=== PATIENT | female | born 1995 | race African-American/Black ===

== ENCOUNTER 2017-04-25 09:59 | Emergency (ER) | payer OTHER ==
[~2017-04-25] VITALS: Ht 170.2 cm; Wt 127.0 kg
[~2017-04-25 09:59] MED LIST: AZITHROMYCIN 2250 MG PO; NORVASC10 MG PO; ZOFRAN ODT4 MG PO
[2017-04-25 10:30] LABS: URINE BILIRUBIN NEGATIVE (Negative); URINE BLOOD NEGATIVE (Negative); URINE COLOR YELLOW; URINE GLUCOSE-RANDOM* NEGATIVE (Negative); URINE KETONES NEGATIVE (Negative); URINE LEUKOCYTES-REFLEX 1+ (Negative); URINE PROTEIN (DIPSTICK) NEGATIVE (Negative)
[2017-04-25 10:42] LABS: CASTS None Seen /LPF (None Seen); CRYSTALS None Seen /LPF (None Seen); SQUAMOUS 4-10 Moderate /LPF (0-3)
[2017-04-25 10:43] LABS: URINE RBC 0-2 Rare /HPF (0-2); URINE WBC-REFLEX 6-15 Few /HPF (0-5)
[2017-04-25 10:51] LABS: ABSOLUTE NEUTROPHILS 8.1 thou/uL (1.4-8.2); BASOPHILS 0.3 % (0.0-2.0); EOSINOPHILS 0.5 % (0.0-3.0); HEMATOCRIT 41.8 % (37.0-47.0); HEMOGLOBIN 13.9 gm/dL (12.0-15.0); LYMPHOCYTES 15.1 % (24.0-44.0); MCH 27.3 pg (26.0-34.0); MCHC 33.3 g/dL (28.0-37.0); MONOCYTES 5.8 % (1.0-8.0); PLATELET COUNT 296 thou/uL (150-400); POLYS 78.3 % (36.0-66.0); RBC 5.09 mil/uL (4.20-5.00); RDW 13.7 % (10.5-14.5); WBC 10.3 thou/uL (4.0-11.0)
[2017-04-25 10:52] LABS: MANUAL DIFF NO
[2017-04-25 11:04] LABS: CALCIUM 9.2 mg/dL (8.5-10.1); POTASSIUM 3.3 mmol/L (3.5-5.1)
[2017-04-25 11:11] LABS: ALBUMIN 3.8 g/dL (3.4-5.0); TOTAL BILIRUBIN 0.5 mg/dL (<0.1-1.0); TOTAL PROTEIN 7.9 g/dL (6.4-8.2)
[2017-04-25] MEDS ORDERED: KEFLEX500 M1 PO (11:37)
[2017-04-25] MEDS ORDERED: ZOFRAN ODT4 M1 PO (11:37)
[2017-04-25 11:52] VITALS: BP 120/67
== END 2017-04-25 11:54 | disposition home or self-care (01) ==
LOC: ER 09:59
PROVIDERS: Physician Assistant
DX: N39.0 Urinary tract infection, site not specified (principal); I10 Essential (primary) hypertension

== ENCOUNTER 2017-04-30 10:12 | Emergency (ER) | payer OTHER ==
[~2017-04-30] VITALS: Ht 170.2 cm; Wt 127.0 kg
--- NOTE | ~2017-04-30 | EKG ---
[address] [address] ELECTROCARDIOGRAM REPORT Name: ELOINA FIGUEROAJOSSELINEBROOKLYN Aguilar Room #: DEP [facility]#: [id number] Admission: 04/30/17 Attend Phys: Discharge: 04/30/17 Date of : [birth year] Report #: [id number] THIS REPORT FOR: //name// 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
[~2017-04-30 10:12] MED LIST changes: +KEFLEX500 M1 PO; +ZOFRAN ODT4 M1 PO
[2017-04-30 11:37] LABS: ABSOLUTE NEUTROPHILS 6.3 thou/uL (1.4-8.2); BASOPHILS 0.5 % (0.0-2.0); EOSINOPHILS 1.1 % (0.0-3.0); HEMATOCRIT 39.8 % (37.0-47.0); HEMOGLOBIN 13.1 gm/dL (12.0-15.0); LYMPHOCYTES 22.8 % (24.0-44.0); MCH 27.3 pg (26.0-34.0); MCHC 33.1 g/dL (28.0-37.0); MCV 82.7 fL (80.0-100.0); MONOCYTES 5.7 % (1.0-8.0); PLATELET COUNT 276 thou/uL (150-400); POLYS 69.9 % (36.0-66.0); RBC 4.81 mil/uL (4.20-5.00); RDW 13.5 % (10.5-14.5)
[2017-04-30 11:38] LABS: MANUAL DIFF NO
[2017-04-30 11:45] LABS: POTASSIUM 3.3 mmol/L (3.5-5.1)
[2017-04-30 12:18] VITALS: BP 129/70
== END 2017-04-30 12:20 | disposition home or self-care (01) ==
LOC: ER 10:12
PROVIDERS: Emergency Medicine
DX: G56.03 Carpal tunnel syndrome, bilateral upper limbs (principal); E87.6 Hypokalemia; I10 Essential (primary) hypertension

== ENCOUNTER 2017-06-26 09:57 | Emergency (ER) | payer OTHER ==
[~2017-06-26] VITALS: Ht 170.2 cm; Wt 117.9 kg
[2017-06-26] MEDS ORDERED: MOBIC7.5 MG PO (10:47)
[2017-06-26] MEDS ORDERED: PREDNISONE 20 M20 MG PO (10:47)
[2017-06-26] MEDS ORDERED: PENICILLIN V P500 MG PO (10:47)
== END 2017-06-26 11:05 | disposition home or self-care (01) ==
LOC: ER 09:57
DX: J02.0 Streptococcal pharyngitis (principal); I10 Essential (primary) hypertension

== ENCOUNTER 2017-07-05 19:11 | Emergency (ER) | payer OTHER ==
[~2017-07-05] VITALS: Ht 170.2 cm; Wt 131.5 kg
[~2017-07-05 19:11] MED LIST changes: +MOBIC7.5 MG PO; +PENICILLIN V P500 MG PO; +PREDNISONE 20 M20 MG PO
[2017-07-05] MEDS ORDERED: NAPROSYN500 MG PO (19:56)
== END 2017-07-05 20:10 | disposition home or self-care (01) ==
LOC: ER 19:11
DX: S20.112A Abrasion of breast, left breast, initial encounter (principal); I10 Essential (primary) hypertension; X58.XXXA Exposure to other specified factors, initial encounter; Y93.89 Activity, other specified; Y92.89 Other specified places as the place of occurrence of the external cause; Y99.8 Other external cause status

== ENCOUNTER 2017-11-29 14:12 | Emergency (ER) | payer OTHER ==
[~2017-11-29] VITALS: Ht 170.2 cm; Wt 90.7 kg
[~2017-11-29 14:12] MED LIST changes: +NAPROSYN500 MG PO
[2017-11-29 14:16] VITALS: BP 167/110
[2017-11-29] MEDS ORDERED: ZYRTEC10 M2 PO (15:15)
[2017-11-29] MEDS ORDERED: HYDROCORTISONE120 M1 TOP (15:15)
== END 2017-11-29 15:10 | disposition home or self-care (01) ==
LOC: ER 14:12
DX: S40.861A Insect bite (nonvenomous) of right upper arm, initial encounter (principal); S30.861A Insect bite (nonvenomous) of abdominal wall, initial encounter; I10 Essential (primary) hypertension; W57.XXXA Bitten or stung by nonvenomous insect and other nonvenomous arthropods, initial encounter; Y93.89 Activity, other specified; Y92.89 Other specified places as the place of occurrence of the external cause; Y99.8 Other external cause status

== ENCOUNTER 2017-12-10 14:00 | Emergency (ER) | payer OTHER ==
[~2017-12-10] VITALS: Ht 170.2 cm; Wt 131.5 kg
[~2017-12-10 14:00] MED LIST changes: +HYDROCORTISONE120 M1 TOP; +ZYRTEC10 M2 PO
[2017-12-10 14:02] VITALS: BP 157/103
[2017-12-10] MEDS ORDERED: NORVASC5 MG PO (14:04)
[2017-12-10] MEDS ORDERED: COZAAR 50 MG TA50 M2 PO (14:05)
[2017-12-10] MEDS ORDERED: PENICILLIN V P500 MG PO (14:22)
== END 2017-12-10 14:29 | disposition home or self-care (01) ==
LOC: ER 14:00
DX: K08.89 Other specified disorders of teeth and supporting structures (principal); I10 Essential (primary) hypertension

== ENCOUNTER 2017-12-13 18:03 | Emergency (ER) | payer OTHER ==
[~2017-12-13] VITALS: Ht 170.2 cm; Wt 131.5 kg
[~2017-12-13 18:03] MED LIST changes: +COZAAR 50 MG TA50 M2 PO; +NORVASC5 MG PO
[2017-12-13 18:12] VITALS: BP 163/117
[2017-12-13] MEDS ORDERED: ULTRAM 50MG TAB50 MG PO (18:34)
[2017-12-13] MEDS ORDERED: NABUMETONE 750750 M1 PO (18:34)
== END 2017-12-13 18:48 | disposition home or self-care (01) ==
LOC: ER 18:03
DX: K01.1 Impacted teeth (principal); K08.89 Other specified disorders of teeth and supporting structures; K13.79 Other lesions of oral mucosa; I10 Essential (primary) hypertension

== ENCOUNTER 2018-07-22 13:56 | Emergency (ER) | payer OTHER ==
[~2018-07-22] VITALS: Ht 170.2 cm; Wt 134.7 kg
[~2018-07-22 13:56] MED LIST changes: +NABUMETONE 750750 M1 PO; -NORVASC5 MG PO; +ULTRAM 50MG TAB50 MG PO
[2018-07-22] MEDS ORDERED: BUTALB-APAP-CA1 EACH PO (14:29)
[2018-07-22 15:40] VITALS: BP 133/84
== END 2018-07-22 15:40 | disposition home or self-care (01) ==
LOC: ER 13:56
DX: R51 Headache (principal); I10 Essential (primary) hypertension

== ENCOUNTER 2018-08-15 05:39 | Emergency (ER) | payer OTHER ==
[~2018-08-15] VITALS: Ht 170.2 cm; Wt 134.7 kg
[~2018-08-15 05:39] MED LIST changes: +BUTALB-APAP-CA1 EACH PO
[2018-08-15 07:20] VITALS: BP 146/72
== END 2018-08-15 07:21 | disposition home or self-care (01) ==
LOC: ER 05:39
PROVIDERS: Emergency Medicine
DX: J02.9 Acute pharyngitis, unspecified (principal); I10 Essential (primary) hypertension

== ENCOUNTER 2018-09-03 14:10 | Emergency (ER) | payer OTHER ==
[~2018-09-03] VITALS: Ht 170.2 cm; Wt 134.7 kg
[2018-09-03 14:30] LABS: URINE BILIRUBIN NEGATIVE (Negative); URINE BLOOD NEGATIVE (Negative); URINE CLARITY CLEAR; URINE COLOR YELLOW; URINE GLUCOSE-RANDOM* NEGATIVE (Negative); URINE KETONES NEGATIVE (Negative); URINE LEUKOCYTES-REFLEX NEGATIVE (Negative); URINE NITRITE-REFLEX NEGATIVE (Negative); URINE PROTEIN (DIPSTICK) NEGATIVE (Negative); URINE UROBILINOGEN 0.2 E.U./dl (0.2-1.0)
[2018-09-03] MEDS ORDERED: FLAGYL500 M1 PO (15:52)
[2018-09-03 15:58] VITALS: BP 150/78
== END 2018-09-03 15:59 | disposition home or self-care (01) ==
LOC: ER 14:10
PROVIDERS: Emergency Medicine
DX: N76.0 Acute vaginitis (principal); B96.89 Other specified bacterial agents as the cause of diseases classified elsewhere; I10 Essential (primary) hypertension

== ENCOUNTER 2018-11-10 09:07 | Emergency (ER) | payer OTHER ==
[~2018-11-10] VITALS: Ht 170.2 cm; Wt 134.7 kg
[2018-11-10 09:07] VITALS: BP 152/91
[~2018-11-10 09:07] MED LIST changes: +FLAGYL500 M1 PO
== END 2018-11-10 09:30 | disposition home or self-care (01) ==
LOC: ER 09:07
DX: M79.645 Pain in left finger(s) (principal); I10 Essential (primary) hypertension

== ENCOUNTER 2019-01-29 14:11 | Emergency (ER) | payer OTHER ==
[~2019-01-29] VITALS: Ht 170.2 cm; Wt 134.7 kg
[2019-01-29] MEDS ORDERED: NEOMYC-POLYM-DEX5 ML OPHTHALMIC (15:37)
[2019-01-29 15:46] VITALS: BP 142/94
== END 2019-01-29 15:46 | disposition home or self-care (01) ==
LOC: ER 14:11
DX: S05.02XA Injury of conjunctiva and corneal abrasion without foreign body, left eye, initial encounter (principal); I10 Essential (primary) hypertension; X58.XXXA Exposure to other specified factors, initial encounter; Y92.89 Other specified places as the place of occurrence of the external cause; Y93.89 Activity, other specified; Y99.8 Other external cause status

== ENCOUNTER 2019-04-02 17:22 | Emergency (ER) | payer OTHER ==
[~2019-04-02] VITALS: Ht 170.2 cm; Wt 134.7 kg
[~2019-04-02 17:22] MED LIST changes: +NEOMYC-POLYM-DEX5 ML OPHTHALMIC
[2019-04-02 17:23] VITALS: BP 141/92
[2019-04-02] MEDS ORDERED: MEDROLDOSEPACK PO (17:49)
[2019-04-02] MEDS ORDERED: PENICILLIN VK500 M1 PO (17:49)
[2019-04-02] MEDS ORDERED: CEPACOL SORE T1 EAC8 PO (17:49)
== END 2019-04-02 18:02 | disposition home or self-care (01) ==
LOC: ER 17:22
DX: J02.0 Streptococcal pharyngitis (principal); H93.8X1 Other specified disorders of right ear; I10 Essential (primary) hypertension

== ENCOUNTER 2019-05-17 23:02 | Emergency (ER) | payer OTHER ==
[~2019-05-17] VITALS: Ht 170.2 cm; Wt 132.9 kg
[~2019-05-17 23:02] MED LIST changes: +CEPACOL SORE T1 EAC8 PO; +MEDROLDOSEPACK PO; +PENICILLIN VK500 M1 PO
[2019-05-18 01:02] LABS: HEMATOCRIT 42.6 % (37.0-47.0); MCH 27.3 pg (26.0-34.0); MCV 82.7 fL (80.0-100.0); PLATELET COUNT 368 thou/uL (150-400); RBC 5.14 mil/uL (4.20-5.00); RDW 13.8 % (10.5-14.5)
[2019-05-18 01:15] LABS: CALCIUM 9.3 mg/dL (8.5-10.1); POTASSIUM 3.5 mmol/L (3.5-5.1)
[2019-05-18 01:22] LABS: ALBUMIN 4.2 g/dL (3.4-5.0); DIRECT BILIRUBIN 0.1 mg/dL (<0.1-0.2); TOTAL BILIRUBIN 0.5 mg/dL (<0.1-1.0); TOTAL PROTEIN 9.2 g/dL (6.4-8.2)
[2019-05-18 01:32] LABS: ABSOLUTE NEUTROPHILS 18.5 thou/uL (1.4-8.2)
[2019-05-18] MEDS ORDERED: BENTYL 20 MG TA20 M1 PO (03:50)
[2019-05-18] MEDS ORDERED: ZOFRAN ODT4 MG PO (03:50)
[2019-05-18 03:57] VITALS: BP 105/51
== END 2019-05-18 03:58 | disposition home or self-care (01) ==
LOC: ER 23:02
PROVIDERS: Emergency Medicine
DX: R10.13 Epigastric pain (principal); R11.2 Nausea with vomiting, unspecified; R19.7 Diarrhea, unspecified; I10 Essential (primary) hypertension

== ENCOUNTER 2019-08-05 18:57 | Emergency (ER) | payer OTHER ==
[~2019-08-05] VITALS: Ht 170.2 cm; Wt 131.5 kg
[~2019-08-05 18:57] MED LIST changes: +BENTYL 20 MG TA20 M1 PO
[2019-08-05] MEDS ORDERED: TAMIFLU75 MG PO (19:56)
[2019-08-05] MEDS ORDERED: PROMETH-CODEIN 65 ML PO (19:56)
[2019-08-05 20:21] VITALS: BP 174/108
== END 2019-08-05 20:22 | disposition home or self-care (01) ==
LOC: ER 18:57
DX: R50.9 Fever, unspecified (principal); R05 Cough; R51 Headache; R42 Dizziness and giddiness; R09.81 Nasal congestion; M79.10 Myalgia, unspecified site; I10 Essential (primary) hypertension; Z79.899 Other long term (current) drug therapy

== ENCOUNTER 2020-02-21 11:02 | Emergency (ER) | payer OTHER ==
[~2020-02-21] VITALS: Ht 170.2 cm; Wt 132.9 kg
[~2020-02-21 11:02] MED LIST changes: +PROMETH-CODEIN 65 ML PO; +TAMIFLU75 MG PO
[2020-02-21 11:06] VITALS: BP 180/101
[2020-02-21] MEDS ORDERED: AMOXICILLIN500 M1 PO (11:30)
[2020-02-21] MEDS ORDERED: IBUPROFEN 600600 M1 PO (11:30)
== END 2020-02-21 11:46 | disposition home or self-care (01) ==
LOC: ER 11:02
DX: J02.9 Acute pharyngitis, unspecified (principal); I10 Essential (primary) hypertension; Z79.899 Other long term (current) drug therapy

== ENCOUNTER 2020-02-24 18:50 | Emergency (ER) | payer OTHER ==
[~2020-02-24] VITALS: Ht 170.2 cm; Wt 133.8 kg
[~2020-02-24 18:50] MED LIST changes: +AMOXICILLIN500 M1 PO; +IBUPROFEN 600600 M1 PO
[2020-02-24 19:52] LABS: ABSOLUTE NEUTROPHILS 6.4 thou/uL (1.4-8.2); BASOPHILS 0.5 % (0.0-2.0); EOSINOPHILS 1.4 % (0.0-3.0); HEMATOCRIT 38.5 % (37.0-47.0); LYMPHOCYTES 23.9 % (24.0-44.0); MCH 28.6 pg (26.0-34.0); MCHC 33.7 g/dL (28.0-37.0); MCV 84.7 fL (80.0-100.0); MONOCYTES 7.2 % (1.0-8.0); PLATELET COUNT 269 thou/uL (150-400); RBC 4.55 mil/uL (4.20-5.00); WBC 9.6 thou/uL (4.0-11.0)
[2020-02-24 19:57] LABS: ANION GAP 8 mmol/L (7-16); BUN 6 mg/dL (7-18); CALCIUM 8.7 mg/dL (8.5-10.1); CHLORIDE 104 mmol/L (98-107); CO2 28 mmol/L (21-32); CREATININE 1.1 mg/dL (0.6-1.0); GLUCOSE 90 mg/dL (74-106); POTASSIUM 3.4 mmol/L (3.5-5.1); SODIUM 140 mmol/L (136-145)
[2020-02-24 20:08] LABS: ALBUMIN 3.9 g/dL (3.4-5.0); SGOT 29 U/L (15-37); SGPT 49 U/L (30-65); TOTAL BILIRUBIN 0.4 mg/dL (0.2-1.0); TROPONIN-I <0.06 ng/mL (<0.06)
[2020-02-24] MEDS ORDERED: MOBIC7.5 MG PO (20:50)
[2020-02-24] MEDS ORDERED: CYCLOBENZAPRINE5 MG PO (21:00)
[2020-02-24 21:20] VITALS: BP 165/94
--- NOTE | 2020-02-25 07:42 | EKG ---
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: : 1995 Requested By: Elyse Sepulveda Order Number: [id number] MD: Brent Christianson Measurements Intervals [place] Rate: 100 P: 0 LA: 136 QRS: 21 QRSD: 74 T: -30 QT: 353 QTc: 456 Interpretive Statements Sinus tachycardia Borderline T abnormalities, diffuse leads Compared to ECG 04/30/2017 10:26:01 No significant change was found Electronically Signed On 02-25-2020 7:42:07 CDT by Brent Christianson [email or web address] <ELECTRONICALLY SIGNED> By: Brent Christinason MD, FACC 02/25/20 0742 1859 58 Brent Christianson MD, [facility] /EPI
== END 2020-02-24 21:20 | disposition home or self-care (01) ==
LOC: ER 18:50
PROVIDERS: Physician Assistant
DX: R07.89 Other chest pain (principal); R51 Headache; I10 Essential (primary) hypertension; Z79.899 Other long term (current) drug therapy

== ENCOUNTER 2020-03-05 14:58 | Emergency (ER) | payer OTHER ==
[~2020-03-05] VITALS: Ht 170.2 cm; Wt 133.8 kg
[~2020-03-05 14:58] MED LIST changes: +CYCLOBENZAPRINE5 MG PO
[2020-03-05 15:29] VITALS: BP 153/119
[2020-03-05] MEDS ORDERED: ITCH RELIEF15 GM TP (16:07)
[2020-03-05] MEDS ORDERED: DIFLUCAN150 MG PO (16:07)
[2020-03-05] MEDS ORDERED: KEFLEX500 M1 PO (16:07)
== END 2020-03-05 18:01 | disposition home or self-care (01) ==
LOC: ER 14:58
DX: B37.2 Candidiasis of skin and nail (principal); I10 Essential (primary) hypertension; Z79.899 Other long term (current) drug therapy

== ENCOUNTER 2020-05-03 12:50 | Emergency (ER) | payer OTHER ==
[~2020-05-03] VITALS: Ht 170.2 cm; Wt 134.7 kg
[~2020-05-03 12:50] MED LIST changes: +DIFLUCAN150 MG PO; +ITCH RELIEF15 GM TP
[2020-05-03] MEDS ORDERED: MOBIC15 MG PO (13:45)
[2020-05-03 13:54] VITALS: BP 155/105
== END 2020-05-03 14:00 | disposition home or self-care (01) ==
LOC: ER 12:50
DX: R05 Cough (principal); R51.9 Headache, unspecified; R06.00 Dyspnea, unspecified; R11.0 Nausea; I10 Essential (primary) hypertension; Z79.899 Other long term (current) drug therapy; Z20.828 Contact with and (suspected) exposure to other viral communicable diseases

== ENCOUNTER 2020-06-23 20:35 | Emergency (ER) | payer OTHER ==
[~2020-06-23] VITALS: Ht 170.2 cm; Wt 133.8 kg
[~2020-06-23 20:35] MED LIST changes: +MOBIC15 MG PO
[2020-06-23 21:35] LABS: ABSOLUTE NEUTROPHILS 8.9 thou/uL (1.4-8.2); BASOPHILS 0.6 % (0.0-2.0); EOSINOPHILS 1.4 % (0.0-3.0); HEMATOCRIT 40.3 % (37.0-47.0); HEMOGLOBIN 13.1 gm/dL (12.0-15.0); LYMPHOCYTES 23.7 % (24.0-44.0); MCH 27.9 pg (26.0-34.0); MCHC 32.6 g/dL (28.0-37.0); MCV 85.6 fL (80.0-100.0); MONOCYTES 6.9 % (1.0-8.0); PLATELET COUNT 314 thou/uL (150-400); POLYS 67.4 % (36.0-66.0); RBC 4.71 mil/uL (4.20-5.00); RDW 13.5 % (10.5-14.5); WBC 13.3 thou/uL (4.0-11.0)
[2020-06-23 21:40] LABS: ANION GAP 12 mmol/L (7-16); BUN 9 mg/dL (7-18); CALCIUM 9.8 mg/dL (8.5-10.1); CHLORIDE 102 mmol/L (98-107); CO2 25 mmol/L (21-32); GLUCOSE 104 mg/dL (74-106); POTASSIUM 3.3 mmol/L (3.5-5.1); SODIUM 139 mmol/L (136-145)
[2020-06-23 21:49] LABS: MAGNESIUM 2.3 mg/dL (1.8-2.4); TROPONIN-I <0.06 ng/mL (<0.06)
[2020-06-23 22:05] LABS: URINE BILIRUBIN NEGATIVE (Negative); URINE BLOOD NEGATIVE (Negative); URINE CLARITY CLEAR; URINE COLOR YELLOW; URINE GLUCOSE-RANDOM* NEGATIVE (Negative); URINE KETONES NEGATIVE (Negative); URINE LEUKOCYTES-REFLEX NEGATIVE (Negative); URINE NITRITE-REFLEX NEGATIVE (Negative); URINE PROTEIN (DIPSTICK) NEGATIVE (Negative); URINE SPECIFIC GRAVITY 1.015 (1.005-1.035); URINE UROBILINOGEN 0.2 E.U./dl (0.2-1.0)
[2020-06-23 22:13] LABS: AMP/METHAMP Negative (Negative); BARBITURATES Negative (Negative); BENZODIAZEPINES Negative (Negative); COCAINE Negative (Negative); METHADONE Negative (Negative); OPIATES Negative (Negative); PCP Negative (Negative)
[2020-06-23 23:15] VITALS: BP 125/74
--- NOTE | 2020-06-24 07:17 | EKG ---
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1995 Requested By: Skylar Magana Order Number: [id number] MD: Tomy Pond Measurements Intervals [place] Rate: 90 P: 9 MO: 121 QRS: 33 QRSD: 83 T: -30 QT: 364 QTc: 446 Interpretive Statements Sinus rhythm Borderline T abnormalities, diffuse leads Compared to ECG 02/24/2020 18:59:08 Sinus tachycardia no longer present T-wave abnormality still present Electronically Signed On 06-24-2020 7:17:01 PREBOARDER by Tomy Pond [email or web address] <ELECTRONICALLY SIGNED> By: Tomy Pond MD, [facility] 06/24/20716 52 52 Tomy Pond MD, FACC /EPI
== END 2020-06-23 23:15 | disposition home or self-care (01) ==
LOC: ER 20:35
PROVIDERS: Emergency Medicine
DX: R00.2 Palpitations (principal); R06.02 Shortness of breath; R42 Dizziness and giddiness; R51.9 Headache, unspecified; I10 Essential (primary) hypertension; Z79.899 Other long term (current) drug therapy

== ENCOUNTER 2020-09-10 05:31 | Emergency (ER) | payer OTHER ==
[~2020-09-10] VITALS: Ht 170.2 cm; Wt 133.8 kg
[2020-09-10 06:10] LABS: ABSOLUTE NEUTROPHILS 6.8 thou/uL (1.4-8.2); BASOPHILS 0.6 % (0.0-2.0); EOSINOPHILS 1.2 % (0.0-3.0); HEMATOCRIT 40.1 % (37.0-47.0); HEMOGLOBIN 13.6 gm/dL (12.0-15.0); LYMPHOCYTES 26.3 % (24.0-44.0); MCH 28.7 pg (26.0-34.0); MCV 84.3 fL (80.0-100.0); MONOCYTES 6.7 % (1.0-8.0); PLATELET COUNT 321 thou/uL (150-400); POLYS 65.2 % (36.0-66.0); RBC 4.75 mil/uL (4.20-5.00); RDW 13.2 % (10.5-14.5); WBC 10.5 thou/uL (4.0-11.0)
[2020-09-10 06:28] LABS: ANION GAP 9 mmol/L (7-16); BUN 8 mg/dL (7-18); CALCIUM 8.7 mg/dL (8.5-10.1); CHLORIDE 106 mmol/L (98-107); CO2 26 mmol/L (21-32); CREATININE 1.1 mg/dL (0.6-1.0); GLUCOSE 103 mg/dL (74-106); POTASSIUM 3.4 mmol/L (3.5-5.1); SODIUM 141 mmol/L (136-145)
[2020-09-10 06:37] LABS: ALBUMIN 3.7 g/dL (3.4-5.0); SGOT 25 U/L (15-37); SGPT 42 U/L (14-59); TOTAL BILIRUBIN 0.6 mg/dL (0.2-1.0); TOTAL PROTEIN 7.9 g/dL (6.4-8.2); TROPONIN-I <0.06 ng/mL (<0.06)
[2020-09-10 07:00] VITALS: BP 140/69
--- NOTE | 2020-09-10 16:53 | EKG ---
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 : 1995 Requested By: Aris Arevalo Order Number: [id number] MD: Brent Christianson Measurements Intervals [place] Rate: 80 P: -4 GA: 144 QRS: 23 QRSD: 83 T: -19 QT: 369 QTc: 426 Interpretive Statements Sinus rhythm Borderline T abnormalities, diffuse leads Compared to ECG 06/23/2020 20:53:56 No significant changes Electronically Signed On 09-10-2020 16:53:12 CDT by Brent Christianson [email or web address] <ELECTRONICALLY SIGNED> By: Brent Christianson MD, [facility] 09/10/20 1653 0541 0541 Brent Christianson MD, FACC /EPI
== END 2020-09-10 07:00 | disposition home or self-care (01) ==
LOC: ER 05:31
PROVIDERS: Emergency Medicine
DX: R07.89 Other chest pain (principal); I10 Essential (primary) hypertension; Z79.899 Other long term (current) drug therapy

== ENCOUNTER 2020-12-24 15:21 | Emergency (ER) | payer OTHER ==
[~2020-12-24] VITALS: Ht 170.2 cm; Wt 113.4 kg
[2020-12-24 16:35] VITALS: BP 166/107
== END 2020-12-24 16:35 ==
LOC: ER 15:21
DX: J06.9 Acute upper respiratory infection, unspecified (principal); I10 Essential (primary) hypertension; Z20.822 Contact with and (suspected) exposure to COVID-19; Z79.899 Other long term (current) drug therapy